=== PATIENT | male | born 1970 | race Hispanic/Latino ===

== ENCOUNTER → 2023-11-01 | Emergency (ER) | payer OTHER ==
[~2023-11-01] VITALS: Ht 175.3 cm; Wt 68.0 kg
[~2023-11-01] MED LIST: CALCIUM GLUC 1GM/10ML VIAL ONE; EPINEPHRINE 1 MG/ML 30ML VIAL IJ ONE
[2023-11-01 14:46] VITALS: BP 0/0; PULSE 0; RESP 12; O2SAT 97
== END ==
LOC: EDH 14:36
DX: I46.9 Cardiac arrest, cause unspecified (principal)
CPT/HCPCS: 99291; 92950; J0171; J0610